=== PATIENT | male | born 1990 | race Caucasian/White ===

== ENCOUNTER 2020-12-24 12:41 | Inpatient (IN) | payer OTHER, SELFPAY ==
[2020-12-24 13:58] VITALS: BMI 35.3
[2020-12-24 13:59] VITALS: BP 162/83; PULSE 75; TEMP 36.3; O2SAT 98
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
[2020-12-24 16:26] VITALS: BP 157/82; PULSE 88; RESP 18; TEMP 37.1; O2SAT 99
[2020-12-24 18:00] VITALS: BP 136/88; PULSE 64; RESP 18; TEMP 37; O2SAT 100
[2020-12-24] MEDS: risperiDONE 1 MG TABLET PO (21:45)
[2020-12-25 06:00] VITALS: BP 137/78; PULSE 88; RESP 16; TEMP 36.2; O2SAT 97
[2020-12-25] MEDS: risperiDONE 1 MG TABLET PO ×2 (08:16→20:25)
[2020-12-25 08:28] LABS: MANUAL DIFF FLAG NO
[2020-12-25 08:31] LABS: Basophils Percent Auto 0.4 % (0-2); Eosinophils Absolute Auto 0.1 X10*3/uL (0.0-0.4); Eosinophils Percent Auto 1.3 % (0-4); Hematocrit 47.4 % (42-52); Hemoglobin 15.5 g/dl (14.0-18.0); Imm Gran Abs Auto 0.01 X10*3/uL (0.00-0.03); Imm Gran Pct Auto 0.2 % (0.0-0.4); Lymphocytes Absolute Auto 1.5 X10*3/uL (1.2-4.9); Lymphocytes Percent Auto 33.6 % (20-40); Mean Corpuscular HGB Conc 32.7 g/dl (31.0-36.0); Mean Corpuscular Hemoglobin 28.5 pg (27.0-33.0); Mean Corpuscular Volume 87.1 fL (80-98); Mean Platelet Volume 10.5 fL (9.4-12.4); Monocytes Absolute Auto 0.4 X10*3/uL (0.1-1.2); Monocytes Percent Auto 8.6 % (2-11); Neutrophils Absolute Auto 2.6 X10*3/uL (2.0-8.3); Neutrophils Percent Auto 55.9 % (45-73); Platelet Count 255 X10*3/uL (160-400); Red Blood Count 5.44 X10*6/uL (4.60-5.80); Red Cell Distribution Width 12.8 % (11.0-16.0); White Blood Count 4.6 X10*3/uL (4.8-10.8)
[2020-12-25 08:40] LABS: Estimated Average Glucose 105 mg/dL; Hemoglobin A1c % 5.3 %
[2020-12-25 09:10] LABS: Anion Gap 11 (12-20); Blood Urea Nitrogen 11 mg/dL (9-16); Carbon Dioxide 28 mmol/L (22-29); Chloride 104 mmol/L (96-108); Cholesterol 221 mg/dL; Creatinine Clr Calc Pharmacy 160.1; Estimated Glomerular Filt Rate > 60; HDL Cholesterol 43 mg/dL; LDL Cholesterol Calculated 162 mg/dl; Potassium 4.2 mmol/L (3.3-5.1); Sodium 139 mmol/L (135-145); Triglycerides 82 mg/dL
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
[2020-12-25 18:57] VITALS: BP 123/84; PULSE 85; TEMP 37.1
[2020-12-26 06:00] VITALS: BP 142/84; PULSE 108; RESP 16; TEMP 36.6; O2SAT 98
[2020-12-26] MEDS: risperiDONE 1 MG TABLET PO ×2 (08:50→19:51)
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
[2020-12-26] MEDS: FLUoxetine HCl 10 MG CAPSULE PO (11:28)
[2020-12-26 16:24] VITALS: BP 141/76; PULSE 101; TEMP 37
[2020-12-27 06:00] VITALS: BP 115/74; PULSE 19; RESP 19; TEMP 36.2; O2SAT 96
[2020-12-27] MEDS: FLUoxetine HCl 10 MG CAPSULE PO (08:18)
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
[2020-12-27 18:00] VITALS: BP 142/95; PULSE 91; TEMP 36.4
[2020-12-27] MEDS: risperiDONE 2 MG TABLET PO (21:02)
[2020-12-28 06:00] VITALS: BP 115/53; PULSE 67; RESP 20; TEMP 36.6; O2SAT 98
[2020-12-28] MEDS: FLUoxetine HCl 10 MG CAPSULE PO (08:06)
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
[2020-12-28 18:00] VITALS: BP 146/70; PULSE 77; TEMP 37.1
[2020-12-28] MEDS: risperiDONE 2 MG TABLET PO (19:50)
[2020-12-28] MEDS: Nicotine Polacrilex 2 MG GUM 4 MG BUCCAL (22:20)
[2020-12-29 06:00] VITALS: BP 151/83; PULSE 106; RESP 16; TEMP 36.6; O2SAT 98
[2020-12-29] MEDS: FLUoxetine HCl 10 MG CAPSULE PO (07:45)
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
[2020-12-29 16:45] VITALS: BP 118/80; PULSE 86; TEMP 36.8
[2020-12-29] MEDS: risperiDONE 1 MG TABLET PO (19:58)
[2020-12-30 06:00] VITALS: BP 145/76; PULSE 101; RESP 16; TEMP 36.7; O2SAT 99
[2020-12-30] MEDS: FLUoxetine HCl 10 MG CAPSULE PO (08:43)
[2020-12-30] MEDS: risperiDONE 1 MG TABLET PO (08:43)
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
== END 2020-12-30 12:05 | disposition home or self-care (01) | DRG 751 ==
PROVIDERS: Admitting Provider Psychiatry & Neurology Psychiatry; Visit Provider Psychiatry & Neurology Psychiatry
DX: F33.2 Major depressive disorder, recurrent severe without psychotic features (principal); F29 Unspecified psychosis not due to a substance or known physiological condition; F43.12 Post-traumatic stress disorder, chronic; Z79.899 Other long term (current) drug therapy; Z87.891 Personal history of nicotine dependence
CPT/HCPCS: 36415; 80051; 80061; 82565; 83036; 84520; 85025